=== PATIENT | female | born 1975 | race Hispanic/Latino ===

== ENCOUNTER 2018-07-31 01:25 | Emergency (ER) | payer OTHER ==
[2018-07-31] MEDS ORDERED: ONDANSETRON 4 MG/2 ML VIAL ONE (02:28)
[2018-07-31] MEDS ORDERED: DIPHENHYDRAMINE 50 MG/ML VIAL ONE (02:28)
[2018-07-31] MEDS ORDERED: NA CHLORIDE 0.9% 1,000 ML ONE (02:28)
[2018-07-31 03:11] LABS: Absolute Lymphocytes (CBC) 2.5 K/uL (0.7-4.9); Absolute Monocytes 0.5 K/uL (0.1-1.3); Absolute Neutrophil 4.3 K/uL (1.8-8.0); Basophils % 0.7 % (0-1.3); Eosinophils % 2.7 % (0-4.4); Hematocrit 40.2 % (36.0-45.0); Lymphocytes % 32.9 % (15.3-44.8); MPV 8.1 fL (7.6-11.3); Monocytes % 6.4 % (3.3-12.3); RBC Red Blood Cell Count 4.25 M/uL (3.86-4.86)
[2018-07-31 03:30] LABS: Protime INR 0.99
[2018-07-31] MEDS ORDERED: LORazepam 2 MG/ML VIAL ONE (03:36)
[2018-07-31 03:38] LABS: ALT/SGPT 29 U/L (12-78); AST/SGOT 26 U/L (15-37); Albumin 3.9 g/dL (3.4-5.0); Alkaline Phosphatase 82 U/L (45-117); BUN Blood Urea Nitrogen 13 mg/dL (7-18); Bicarbonate 23 mmol/L (21-32); Bilirubin Direct < 0.1 mg/dL (0-0.2); Bilirubin Total 0.4 mg/dL (0.2-1.0); Glucose Level 99 mg/dL (74-106); Potassium 3.5 mmol/L (3.5-5.1); Protein, Total 7.2 g/dL (6.4-8.2); Sodium Level 143 mmol/L (136-145)
--- NOTE | 2018-07-31 03:57 | EDPHYS ---
Physician Documentation [facility] Name: Estephania Jordan Age: 42 yrs Sex: Female : 1975 Arrival Date: 07/31/2018 Time: 01:27 Bed 17 Private MD: Liliana Crenshaw H ED Physician Jose M Bains HPI: 07/31 02:15 This 42 yrs old Female presents to ER via Ambulatory with complaints of cp Anxiety. 02:15 Onset: The symptoms/episode began/occurred tonight. Associated signs and symptoms: cp Pertinent positives: chest heaviness, restlessness, difficulty sleeping. 02:15 The patient has not experienced similar symptoms in the past. Patient reports she took cp OTC B-12 supplement after working out this evening and now c/o anxiety. Historical: - Allergies: 01:41 No Known Allergies; jd3 - Home Meds: 01:41 None [Active]; jd3 - PMHx: 01:41 None; jd3 - PSHx: 01:41 Appendectomy; jd3 - Immunization history:: Adult Immunizations up to date. - Social history:: Smoking status: Patient/guardian denies using tobacco. - Ebola Screening: : Patient negative for fever greater than or equal to 101.5 degrees Fahrenheit, and additional compatible Ebola Virus Disease symptoms. ROS: 02:15 Constitutional: Negative for body aches, chills, fever, poor PO intake. cp 02:15 Eyes: Negative for injury, pain, redness, and discharge. cp 02:15 Cardiovascular: Positive for chest heaviness, Negative for edema, palpitations. 02:15 Respiratory: Negative for cough, shortness of breath, wheezing. 02:15 Abdomen/GI: Positive for nausea, Negative for abdominal pain, vomiting, diarrhea, constipation. 02:15 Skin: Negative for cellulitis, rash. 02:15 Neuro: Negative for altered mental status, dizziness, headache, syncope, weakness. 02:15 Psych: Positive for anxiety, restlessness, Negative for auditory hallucinations, visual hallucinations. 02:15 All other systems are negative. Exam: 02:30 ECG was reviewed by the Attending Physician. cp 02:30 Constitutional: The patient appears in no acute distress, alert, awake, cp non-diaphoretic, non-toxic, well developed, well nourished. 02:30 Head/Face: Normocephalic, atraumatic. Eyes: Pupils equal round and reactive to light, cp extra-ocular motions intact. Lids and lashes normal. Conjunctiva and sclera are non-icteric and not injected. Cornea within normal limits. Periorbital areas with no swelling, redness, or edema. ENT: Nares patent. No nasal discharge, no septal abnormalities noted. Tympanic membranes are normal and external auditory canals are clear. Oropharynx with no redness, swelling, or masses, exudates, or evidence of obstruction, uvula midline. Mucous membranes moist. Chest/axilla: Normal chest wall appearance and motion. Nontender with no deformity. No lesions are appreciated. Cardiovascular: Regular rate and rhythm with a normal S1 and S2. No gallops, murmurs, or rubs. Normal PMI, no JVD. No pulse deficits. Respiratory: Lungs have equal breath sounds bilaterally, clear to auscultation and percussion. No rales, rhonchi or wheezes noted. No increased work of breathing, no retractions or nasal flaring. Abdomen/GI: Soft, non-tender, with normal bowel sounds. No distension or tympany. No guarding or rebound. No evidence of tenderness throughout. 02:30 Skin: no rash present. 02:30 Neuro: Orientation: to person, place \T\ time. Mentation: is normal, Cerebellar function: is grossly normal, Motor: moves all fours, strength is normal, Sensation: is normal. Vital Signs: 01:41 BP 130 / 93; Pulse 78; Resp 25 S; Temp 97.9(O); Pulse Ox 100% on R/A; Weight 61.23 kg jd3 (R); Height 5 ft. 0 in. (152.40 cm) (R); Pain 0/10; 02:05 BP 123 / 97; Pulse 72; Resp 19; Pulse Ox 99% on R/A; rr5 02:46 BP 104 / 79; Pulse 68; Resp 15; Pulse Ox 98% ; rr5 03:30 BP 113 / 71; Pulse 69; Resp 15; Pulse Ox 98% on R/A; rr5 04:15 BP 107 / 77; Pulse 65; Resp 17; Pulse Ox 99% ; rr5 01:41 Body Mass Index 26.37 (61.23 kg, 152.40 cm) jd3 MDM: 02:04 Patient medically screened. cp 03:55 Data reviewed: vital signs, nurses notes, lab test result(s), EKG, and as a result, I cp will discharge patient. 03:55 Differential diagnosis: electrolyte abnormality, cardiac arrythmia, medication cp reaction. Counseling: I had a detailed discussion with the patient and/or guardian regarding: the historical points, exam findings, and any diagnostic results supporting the discharge/admit diagnosis, lab results, to return to the emergency department if symptoms worsen or persist or if there are any questions or concerns that arise at home. Response to treatment: the patient's symptoms have markedly improved after treatment. 07/31 03:05 Order name: Basic Metabolic Panel; Complete Time: 03:39 EDMS 07/31 03:39 Interpretation: Normal except: CL 110; GFR 68; CA 8.4. cp 07/31 03:05 Order name: Liver (Hepatic) Function; Complete Time: 03:39 EDMS 07/31 03:05 Order name: Alcohol Serum/Plasma; Complete Time: 03:39 EDOH 07/31 03:39 Interpretation: Reviewed. cp 07/31 03:05 Order name: CBC with Automated Diff; Complete Time: 03:39 EDMS 07/31 03:05 Order name: Protime (+INR); Complete Time: 03:39 EDMS 07/31 03:05 Order name: PTT, Activated Partial Thromb; Complete Time: 03:39 EDMS 07/31 03:05 Order name: Urine Drug Screen EDOH 07/31 02:11 Order name: EKG; Complete Time: 05:32 cp 07/31 02:11 Order name: EKG - Nurse/Tech; Complete Time: 02:46 cp 07/31 02:11 Order name: IV Saline Lock; Complete Time: 02:46 cp 07/31 02:11 Order name: Labs collected and sent; Complete Time: 02:46 cp 07/31 02:11 Order name: Urine Dipstick-Ancillary (obtain specimen); Complete Time: 02:14 cp EC:30 Rate is 68 beats/min. Rhythm is regular. CO interval is normal. QRS interval is normal. cp QT interval is normal. Interpreted by me. Reviewed by me. Administered Medications: 02:35 Drug: NS 0.9% 1000 ml Route: IV; Rate: 1 bolus; Site: right forearm; rr5 02:36 Drug: Zofran 4 mg Route: IVP; Site: right forearm; rr5 02:38 Drug: Benadryl 25 mg Route: IVP; Site: right forearm; rr5 03:25 Drug: Ativan 0.5 mg Route: IVP; Site: right forearm; rr5 Disposition: 07/31/18 03:56 Discharged to Home. Impression: Unspecified adverse effect of drug or medicament. - Condition is Stable. - Medication Reconciliation Form, Thank You Letter, Antibiotic Education, Prescription Opioid Use form. - Follow up: Private Physician; When: 1 - 2 days; Reason: If symptoms return. - Problem is new. - Symptoms have improved. Addendum: 08/03/2018 11:11 Co-signature as Attending Physician, Jose M Bains MD I agree with the assessment and c maldonado plan of care. Signatures: Dispatcher [employer] Jose M Eubanks MD MD cha Page, Corey, PA PA Truong Campos RN RN jRay An RN RN rr5 Corrections: (The following items were deleted from the chart) 07/31 03:39 03:39 Normal except: CL 110; GFR 68. cp cp 04:18 03:56 07/31/2018 03:56 Discharged to Home. Impression: Unspecified adverse effect of rr5 drug or medicament. Condition is Stable. Forms are Medication Reconciliation Form, Thank You Letter, Antibiotic Education, Prescription Opioid Use. Follow up: Private Physician; When: 1 - 2 days; Reason: If symptoms return. Problem is new. Symptoms have improved. cp
--- NOTE | 2018-07-31 03:57 | ER ---
Nurse's Notes [facility] Name: Estephania Jordan Age: 42 yrs Sex: Female : 1975 Arrival Date: 07/31/2018 Time: : Bed 17 Private MD: Liliana Crenshaw H Diagnosis: Unspecified adverse effect of drug or medicament Presentation: 07/31 01:35 Presenting complaint: Patient states: "I am having really bad anxiety. I don't know jd3 what caused it. the only thing out of the ordinary was a B-12 vitamin and a urb cocktail, but I already know I am not allergic to the cocktail.". Transition of care: patient was not received from another setting of care. Onset of symptoms was July 31, 2018. Risk Assessment: Do you want to hurt yourself or someone else? Patient reports no desire to harm self or others. Initial Sepsis Screen: Does the patient meet any 2 criteria? RR > 20 per min. No. Patient's initial sepsis screen is negative. Does the patient have a suspected source of infection? No. Patient's initial sepsis screen is negative. Care prior to arrival: None. 01:35 Method Of Arrival: Ambulatory jd3 01:35 Acuity: YESENIA 4 jd3 Historical: - Allergies: 01:41 No Known Allergies; jd3 - Home Meds: 01:41 None [Active]; jd3 - PMHx: 01:41 None; jd3 - PSHx: 01:41 Appendectomy; jd3 - Immunization history:: Adult Immunizations up to date. - Social history:: Smoking status: Patient/guardian denies using tobacco. - Ebola Screening: : Patient negative for fever greater than or equal to 101.5 degrees Fahrenheit, and additional compatible Ebola Virus Disease symptoms. Screenin:08 Abuse screen: Denies threats or abuse. Denies injuries from another. Nutritional rr5 screening: No deficits noted. Tuberculosis screening: No symptoms or risk factors identified. Fall Risk None identified. Total Hernandez Fall Scale indicates No Risk (0-24 pts). Assessment: 02:00 General: Appears in no apparent distress. uncomfortable, Behavior is calm, cooperative, rr5 appropriate for age. Pain: Denies pain. Neuro: Level of Consciousness is awake, alert, obeys commands, Oriented to person, place, time, situation, Appropriate for age Reports im having anxiety attack. Cardiovascular: Capillary refill < 3 seconds Patient's skin is warm and dry. Respiratory: Airway is patent Respiratory effort is even, unlabored, Respiratory pattern is regular, symmetrical. GI: No signs and/or symptoms were reported involving the gastrointestinal system. : No signs and/or symptoms were reported regarding the genitourinary system. EENT: No signs and/or symptoms were reported regarding the EENT system. Derm: Skin is intact, Skin temperature is warm. Musculoskeletal: Capillary refill < 3 seconds, Range of motion: intact in all extremities. 02:00 Reassessment: patient took methyl B-12 2500mcg as per the medicine bottle shown. rr5 03:20 Reassessment: patient complaining of restless lower extremities. feels uneasy. ED rr5 provider aware with order made and carried out. 03:50 Reassessment: Patient appears in no apparent distress at this time. Patient is alert, rr5 oriented x 3, equal unlabored respirations, skin warm/dry/pink. Patient states symptoms have improved. 04:15 Reassessment: Patient appears in no apparent distress at this time. Patient is alert, rr5 oriented x 3, equal unlabored respirations, skin warm/dry/pink. discharge instruction given and explained without complaints made. assisted to passenger car seat together with her significant other driving the car. Patient states feeling better. Patient states symptoms have improved. Vital Signs: 01:41 BP 130 / 93; Pulse 78; Resp 25 S; Temp 97.9(O); Pulse Ox 100% on R/A; Weight 61.23 kg jd3 (R); Height 5 ft. 0 in. (152.40 cm) (R); Pain 0/10; 02:05 BP 123 / 97; Pulse 72; Resp 19; Pulse Ox 99% on R/A; rr5 02:46 BP 104 / 79; Pulse 68; Resp 15; Pulse Ox 98% ; rr5 03:30 BP 113 / 71; Pulse 69; Resp 15; Pulse Ox 98% on R/A; rr5 04:15 BP 107 / 77; Pulse 65; Resp 17; Pulse Ox 99% ; rr5 01:41 Body Mass Index 26.37 (61.23 kg, 152.40 cm) j ED Course: 01:27 Patient arrived in ED. am2 01:27 Liliana Crenshaw DO is Private Physician. am2 01:40 Triage completed. jd3 01:40 Jose M Bustillo PA is PHCP. cp 01:40 Jose M Bains MD is Attending Physician. cp 01:42 Arm band placed on. jd3 02:02 Ray Valentine, CONSTANZA is Primary Nurse. rr5 02:09 Patient has correct armband on for positive identification. Bed in low position. Call rr5 light in reach. Pulse ox on. NIBP on. 02:30 Inserted saline lock: 20 gauge in right forearm, using aseptic technique. Blood rr5 collected. 02:30 Initial lab(s) drawn, by me, sent to lab. rr5 04:15 No provider procedures requiring assistance completed. IV discontinued, intact, rr5 bleeding controlled, No redness/swelling at site. Pressure dressing applied. Administered Medications: 02:35 Drug: NS 0.9% 1000 ml Route: IV; Rate: 1 bolus; Site: right forearm; rr5 02:36 Drug: Zofran 4 mg Route: IVP; Site: right forearm; rr5 02:38 Drug: Benadryl 25 mg Route: IVP; Site: right forearm; rr5 03:25 Drug: Ativan 0.5 mg Route: IVP; Site: right forearm; rr5 Outcome: 03:56 Discharge ordered by MD. cp 04:15 Discharged to home via wheelchair, with significant other. rr5 04:15 Condition: stable 04:15 Discharge instructions given to patient, significant other, Instructed on discharge instructions, follow up and referral plans. Demonstrated understanding of instructions, follow-up care. 04:18 Patient left the ED. rr5 Signatures: Jose M Bustillo PA PA cp Moreno, Amanda am2 Truong Pratt RN RN j Ray Valentine, CONSTANZA RN rr5
[2018-07-31 04:20] LABS: Barbiturates NEGATIVE (NEGATIVE); Benzodiazepines NEGATIVE (NEGATIVE); Cocaine NEGATIVE (NEGATIVE); METHAMPHETAM NEGATIVE (NEGATIVE); Methadone NEGATIVE (NEGATIVE); Opiates NEGATIVE (NEGATIVE); Phencyclidine NEGATIVE (NEGATIVE); THC Cannibis NEGATIVE (NEGATIVE)
--- NOTE | 2018-07-31 10:28 | EKG ---
Test Date: 2018-07-31 Test Time: 02:22:40 [employer] Supervisor: RR MEASUREMENT RESULTS: Intervals: Rate: 68 [place]: 136 QRSD: 88 QT: 418 QTc: 444 [place]: P: 4 AZ: 136 QRS: 65 T: 40 INTERPRETIVE STATEMENTS: Normal sinus rhythm Normal ECG Compared to ECG 09/29/2016 05:12:34 No significant changes Electronically Signed On 07-31-18 10:28:01 CDT by Ole Schwab
== END 2018-07-31 04:18 | disposition home or self-care (01) ==
LOC: ER 01:25
DX: T50.905A Adverse effect of unspecified drugs, medicaments and biological substances, initial encounter (principal); F41.9 Anxiety disorder, unspecified
CPT/HCPCS: 36415; 80048; 80076; 80307; 80320; 85025; 85610; 85730; 93005; 96374; 96375; 99284; J2405; J7030